=== PATIENT | female | born 1945 | race African-American/Black ===

== ENCOUNTER 2017-06-13 20:27 | Emergency (ER) | payer MEDICARE ==
[~2017-06-13] VITALS: Ht 157.5 cm; Wt 95.5 kg
[2017-06-13 20:47] LABS: GLUCOSE,POINT OF CARE 113 MG/DL (70-110)
[2017-06-13] MEDS ORDERED: ALLO100T PO (20:47)
[2017-06-13] MEDS ORDERED: FOLI1CAP2 PO (20:47)
[2017-06-13] MEDS ORDERED: SEVEC800 PO (20:47)
[2017-06-13] MEDS ORDERED: ASPI81 PO (20:47)
[2017-06-13] MEDS ORDERED: MONT10TA21 PO (20:47)
[2017-06-13] MEDS ORDERED: OMEP20 PO (20:47)
[2017-06-13] MEDS ORDERED: AMIT25TA9 PO (20:47)
[2017-06-13] MEDS ORDERED: INSU100V12 SQ (20:47)
[2017-06-13] MEDS ORDERED: CARV20CR PO (20:47)
[2017-06-13] MEDS ORDERED: SUMA25TA9 PO (20:47)
[2017-06-13] MEDS ORDERED: PREG75 PO (20:47)
[2017-06-13] MEDS ORDERED: SIMV-260 PO (20:47)
[2017-06-13] MEDS ORDERED: ACETAMINOPHEN 325 MG TABLET PO ONE (21:15)
[2017-06-13 21:34] LABS: BASOPHILS % (AUTO) 0.4 % (0.0-2.0); EOSINOPHILS % (AUTO) 5.1 % (1.0-6.0); HEMATOCRIT 35.6 % (36-46); HEMOGLOBIN 11.4 g/dL (12.0-16.0); LYMPHOCYTES % (AUTO) 23.6 % (22.0-44.0); MEAN CORPUSCULAR HEMOGLOBIN 31.1 pg (26.0-34.0); MEAN CORPUSCULAR VOLUME 97 fL (80-100); MONOCYTES # (AUTO) 0.8 K/uL (0.1-1.0); MONOCYTES % (AUTO) 9.3 % (2.0-9.0); NEUTROPHILS # (AUTO) 5.3 K/uL (1.8-7.7); NEUTROPHILS % (AUTO) 61.6 % (40.0-70.0); PLATELET COUNT (AUTO) 158 K/uL (150-450); RED BLOOD CELL COUNT(AUTO) 3.67 MIL/uL (4.00-5.20); RED CELL DISTRIBUTION WIDTH 17.4 % (11.5-14.5); WHITE BLOOD COUNT (AUTO) 8.6 K/uL (4.5-11.0)
[2017-06-13 21:39] LABS: CALCIUM, TOTAL 10.1 mg/dL (8.8-10.5); CREATININE 4.75 mg/dL (0.60-1.30); POTASSIUM 3.9 mmol/L (3.5-5.1)
[2017-06-13 22:05] LABS: RBC MORPHOLOGY COMMENT ABNORMAL RBC MORPH
[2017-06-13 22:51] VITALS: BP 122/68
== END 2017-06-13 22:59 | disposition home or self-care (01) ==
LOC: EMS 20:29
DX: J40 Bronchitis, not specified as acute or chronic (principal); J11.1 Influenza due to unidentified influenza virus with other respiratory manifestations; I12.0 Hypertensive chronic kidney disease with stage 5 chronic kidney disease or end stage renal disease; N18.6 End stage renal disease; E11.22 Type 2 diabetes mellitus with diabetic chronic kidney disease; E78.00 Pure hypercholesterolemia, unspecified; F32.9 Major depressive disorder, single episode, unspecified; M10.9 Gout, unspecified; Z79.4 Long term (current) use of insulin; Z79.82 Long term (current) use of aspirin; Z99.2 Dependence on renal dialysis
CPT/HCPCS: 82962; 99285

== ENCOUNTER 2017-06-20 07:12 | Emergency (ER) | payer MEDICARE ==
[~2017-06-20] VITALS: Ht 157.5 cm; Wt 95.5 kg
[~2017-06-20 07:12] MED LIST: ALLO100T PO; AMIT25TA9 PO; ASPI81 PO; CARV20CR PO; FOLI1CAP2 PO; INSU100V12 SQ; MONT10TA21 PO; OMEP20 PO; PREG75 PO; SEVEC800 PO; SIMV-260 PO; SUMA25TA9 PO
[2017-06-20] MEDS ORDERED: ALBUTEROL SULFATE 2.5 MG/0.5 ML NEB SOLUTION NEB ONE (08:00)
[2017-06-20] MEDS ORDERED: IPRATROPIUM BROMIDE 0.5 MG/2.5 ML NEB SOLUTION NEB ONE (08:00)
[2017-06-20 08:12] LABS: BASOPHILS % (AUTO) 0.4 % (0.0-2.0); EOSINOPHILS % (AUTO) 5.9 % (1.0-6.0); HEMATOCRIT 34.1 % (36-46); HEMOGLOBIN 11.2 g/dL (12.0-16.0); LYMPHOCYTES # (AUTO) 2.2 K/uL (1.0-4.8); LYMPHOCYTES % (AUTO) 21.8 % (22.0-44.0); MEAN CORPUSCULAR HEMOGLOBIN 31.8 pg (26.0-34.0); MEAN CORPUSCULAR HGB CONC 32.9 G/dL (31.0-37.0); MEAN CORPUSCULAR VOLUME 97 fL (80-100); MONOCYTES % (AUTO) 9.7 % (2.0-9.0); NEUTROPHILS # (AUTO) 6.4 K/uL (1.8-7.7); NEUTROPHILS % (AUTO) 62.2 % (40.0-70.0); PLATELET COUNT (AUTO) 184 K/uL (150-450); RED BLOOD CELL COUNT(AUTO) 3.53 MIL/uL (4.00-5.20); RED CELL DISTRIBUTION WIDTH 17.2 % (11.5-14.5); WHITE BLOOD COUNT (AUTO) 10.3 K/uL (4.5-11.0)
[2017-06-20 08:15] LABS: CALCIUM, TOTAL 8.8 mg/dL (8.8-10.5); CREATININE 9.88 mg/dL (0.60-1.30); POTASSIUM 5.4 mmol/L (3.5-5.1)
[2017-06-20 08:20] LABS: ALBUMIN 3.8 g/dL (3.4-5.0); BILIRUBIN,TOTAL 1.5 mg/dL (0.1-1.0); TOTAL PROTEIN, SERUM 8.1 g/dL (6.4-8.2)
[2017-06-20 08:36] LABS: RBC MORPHOLOGY COMMENT ABNORMAL RBC MORPH
[2017-06-20] MEDS ORDERED: OxyCODONE HCL/ACETAMINOPHEN 5-325 MG TABLET PO ONE (09:45)
[2017-06-20 10:42] VITALS: BP 148/88
== END 2017-06-20 11:32 | disposition home or self-care (01) ==
LOC: EMS 07:13
DX: J40 Bronchitis, not specified as acute or chronic (principal); E11.9 Type 2 diabetes mellitus without complications; E78.00 Pure hypercholesterolemia, unspecified; I10 Essential (primary) hypertension; Z79.4 Long term (current) use of insulin
CPT/HCPCS: 82962; 94640; 99285